=== PATIENT | male | born 1975 | race Caucasian/White ===

== ENCOUNTER 2018-01-14 15:39 | Emergency (ER) | payer OTHER ==
[~2018-01-14] VITALS: Ht 182.9 cm; Wt 124.7 kg
[2018-01-14] MEDS ORDERED: LEXAPRO20 MG PO (15:47)
[2018-01-14] MEDS ORDERED: CLONAZEPAM 0.50.5 M1 PO (15:47)
[2018-01-14] MEDS ORDERED: NAPROSYN500 MG PO (16:32)
[2018-01-14] MEDS ORDERED: NORCO 5-325 TA1 EACH PO (16:32)
[2018-01-14 17:52] VITALS: BP 147/85
== END 2018-01-14 17:53 | disposition home or self-care (01) ==
LOC: M.ERS 15:39
DX: S63.591A Other specified sprain of right wrist, initial encounter (principal); S63.8X1A Sprain of other part of right wrist and hand, initial encounter; W00.0XXA Fall on same level due to ice and snow, initial encounter; Y93.89 Activity, other specified; Y92.89 Other specified places as the place of occurrence of the external cause; Y99.8 Other external cause status; Z86.73 Personal history of transient ischemic attack (TIA), and cerebral infarction without residual deficits; Z88.8 Allergy status to other drugs, medicaments and biological substances; Z88.0 Allergy status to penicillin